=== PATIENT | male | born 1970 | race Caucasian/White ===

== ENCOUNTER 2018-12-11 17:51 | Emergency (ER) | payer SELFPAY ==
[~2018-12-11] VITALS: Ht 165.1 cm; Wt 68.4 kg
[~2018-12-11 17:51] MED LIST: NO MEDS
[2018-12-11 17:58] VITALS: Ht 165.1 cm; Wt 68.4 kg
[2018-12-11] MEDS ORDERED: ONDANSETRON 4 MG INJ IV STA (20:13)
[2018-12-11] MEDS ORDERED: morphine 4 MG/ML VIAL IV STA (20:13)
[2018-12-11] MEDS ORDERED: RANI150T5 PO (20:40)
[2018-12-11] MEDS ORDERED: OMEP20CA16 PO (20:40)
[2018-12-11] MEDS ORDERED: IBUP-1542 PO (22:18)
[2018-12-11] MEDS ORDERED: ONDA4TAB14 PO (22:18)
--- NOTE | 2018-12-11 22:20 | ERD ---
ER Documentation Chief Complaint Chief Complaint abd pain x 1 week; denies vomit/diarrhea; only nauseated HPI Patient is a 48-year-old male with gastritis who presents with abdominal pain. The patient has right upper quadrant abdominal pain for the past 1 week. It comes and goes. It radiates to his epigastric area. He tried ibuprofen with some relief. He has nausea but no vomiting. His last bowel movement was today. He says the pain is 9 out of 10 and sharp in nature. ROS All systems reviewed and are negative except as per history of present illness. Medications Home Meds Active Scripts Ondansetron (Ondansetron Odt) 4 Mg Tab.rapdis, 4 MG PO Q6H PRN for NAUSEA AND/OR VOMITING, #10 TAB Prov:MEAGAN MONK MD 12/11/18 Ibuprofen* (Motrin*) 600 Mg Tab, 600 MG PO Q6H PRN for PAIN AND OR ELEVATED TEMP, #30 TAB Prov:MEAGAN MONK MD 12/11/18 Reported Medications Omeprazole* (Omeprazole*) 20 Mg Capsule.dr, 20 MG PO DAILY, #30 CAP 12/11/18 Ranitidine Hcl* (Ranitidine Hcl*) 150 Mg Tablet, 150 MG PO Q12, #60 TAB 12/11/18 Discontinued Reported Medications [No Meds] No Conflict Check 08/20/13 Allergies Allergies: Coded Allergies: No Known Allergy (Unverified , 12/11/18) PMhx/Soc Medical and Surgical Hx: pt denies Medical Hx, pt denies Surgical Hx Hx Alcohol Use: No Hx Substance Use: No Hx Tobacco Use: No Smoking Status: Unknown if ever smoked FmHx Family History: No diabetes Physical Exam Vitals Vital Signs Date Temp Pulse Resp B/P (MAP) Pulse Ox O2 O2 Flow FiO2 Time Delivery Rate 12/11/18 69 16 116/78 99 Room Air 22:32 (91) 12/11/18 75 16 130/89 100 Room Air 20:27 (103) 12/11/18 98.4 69 18 136/77 99 17:58 (96) Physical Exam Const: No acute distress Head: Atraumatic Eyes: Normal Conjunctiva ENT: Normal External Ears, Nose and Mouth. Neck: Full range of motion. No meningismus. Resp: Clear to auscultation bilaterally Cardio: Regular rate and rhythm, no murmurs Abd: Soft, right upper quadrant and epigastric tenderness to palpation without rebound or guarding Skin: No petechiae or rashes Back: No midline or flank tenderness Ext: No cyanosis, or edema Neur: Awake and alert Psych: Normal Mood and Affect Result Diagram: 12/11/18202212/11/182022 Results 24 hrs Laboratory Tests Test 12/11/18 20:17 12/11/18 20:23 Urine Color YELLOW Urine Clarity CLEAR Urine pH 5.0 Urine Specific [place] 1.021 Urine Ketones NEGATIVE mg/dL Urine Nitrite NEGATIVE mg/dL Urine Bilirubin NEGATIVE mg/dL Urine Urobilinogen NEGATIVE mg/dL Urine Leukocyte Esterase NEGATIVE Philip/ul Urine Hemoglobin NEGATIVE mg/dL Urine Glucose NEGATIVE mg/dL Urine Total Protein NEGATIVE mg/dl White Blood Count 9.7 10^3/ul Red Blood Count 5.21 10^6/ul Hemoglobin 15.6 g/dl Hematocrit 47.2 % Mean Corpuscular Volume 90.6 fl Mean Corpuscular Hemoglobin 29.9 pg Mean Corpuscular Hemoglobin Concent 33.1 g/dl Red Cell Distribution Width 12.3 % Platelet Count 304 10^3/UL Mean Platelet Volume 10.8 fl Immature Granulocytes % 0.400 % Neutrophils % 57.5 % Lymphocytes % 31.9 % Monocytes % 8.6 % Eosinophils % 1.1 % Basophils % 0.5 % Nucleated Red Blood Cells % 0.0 /100WBC Immature Granulocytes # 0.040 10^3/ul Neutrophils # 5.6 10^3/ul Lymphocytes # 3.1 10^3/ul Monocytes # 0.8 10^3/ul Eosinophils # 0.1 10^3/ul Basophils # 0.1 10^3/ul Nucleated Red Blood Cells # 0.0 10^3/ul Sodium Level 140 mmol/L Potassium Level 4.0 mmol/L Chloride Level 101 mmol/L Carbon Dioxide Level 29 mmol/L Anion Gap 10 Blood Urea Nitrogen 20 mg/dl Creatinine 0.85 mg/dl Est Glomerular Filtrat Rate mL/min > 60 mL/min Glucose Level 113 mg/dl Calcium Level 9.3 mg/dl Total Bilirubin 0.2 mg/dl Direct Bilirubin 0.00 mg/dl Indirect Bilirubin 0.2 mg/dl Aspartate Amino Transf (AST/SGOT) 36 IU/L Alanine Aminotransferase (ALT/SGPT) 66 IU/L Alkaline Phosphatase 101 IU/L Troponin I < 0.012 ng/ml Total Protein 7.6 g/dl Albumin 4.5 g/dl Globulin 3.10 g/dl Albumin/Globulin Ratio 1.45 Lipase 41 U/L Current Medications Medications Dose Sig/Dmitriy Start Time Status Last (Trade) Ordered Route PRN Stop Time Admin Dose Reason Admin Morphine 4 mg ONCE STAT 12/11/18 DC 12/11/18 Sulfate IV 20:13 20:38 (morphine) 12/11/18 20:14 Ondansetron 4 mg ONCE STAT 12/11/18 DC 12/11/18 HCl (Zofran IV 20:13 20:37 Inj) 12/11/18 20:14 Procedures/MDM EKG read by me: Rate/Rhythm: Regular rate and rhythm at a rate of 69 Intervals: Normal Impression: No evidence of ischemia or arrhythmia CT abdomen pelvis negative for surgical process per radiology. Ultrasound of the gallbladder negative for cholecystitis per radiology. Patient is a 48-year-old male presents with abdominal pain. Laboratory studies were negative. Ultrasound and CT scan of the pelvis were negative. At this point I doubt cholecystitis, pancreatitis, appendicitis, or bowel obstruction. I doubt acute coronary syndrome. The patient will be discharged but will need to follow-up closely with his primary doctor within 24 hours for reevaluation. Departure Diagnosis: Primary Impression: Abdominal pain Abdominal location: right upper quadrant Qualified Codes: R10.11 - Right upper quadrant pain Condition: Fair Patient Instructions: Abdominal Pain Referrals: Your doctor Additional Instructions: Llame al doctor MAANA y shiloh compa TOMMY PARA DENTRO DE 1-2 VASQUEZ.Dgale a la secretaria que nosotros le instruimos hacer esta tommy.Avise o llame si portillo condicin se empeora antes de la tommy. Regresa aqui si peor o no mejor. MEAGAN MONK MD Dec 11, 2018 22:20
[2018-12-11 22:32] VITALS: BP 116/78; PULSE 69; RESP 16
== END 2018-12-11 22:33 | disposition home or self-care (01) ==
LOC: E/R 17:51
DX: R10.11 Right upper quadrant pain (principal); R11.0 Nausea
CPT/HCPCS: 36415; 74176; 76705; 80053; 81003; 83690; 84484; 85025; 93005; 96374; 96375; 99285; J2270; J2405